=== PATIENT | male | born 1980 | race Caucasian/White ===

== ENCOUNTER 2018-03-26 10:57 | Emergency (ER) | payer BC ==
[2018-03-26 11:26] VITALS: BP 143/98
--- NOTE | 2018-03-26 12:11 | UC ---
Throat Pain/Nasal Kyle HPI - HPI Summary HPI Summary: Pt c/o sore throat, enlarged and tender lymph nodes in neck and generalized malaise X 3 days. - History of Current Complaint Chief Complaint: UCGeneralIllness Stated Complaint: ST Time Seen by Provider: 03/26/18 11:45 Hx Obtained From: Patient Onset/Duration: Sudden Onset, Lasting Days, Still Present Severity: Moderate Pain Intensity: 8 Cough: None Associated Signs & Symptoms: Positive: Dysphagia - Epiglottits Risk Factors Epiglottis Risk Factors: Negative - Allergies/Home Medications Allergies/Adverse Reactions: Allergies Allergy/AdvReac Type Severity Reaction Status Date / Time Penicillins Allergy Unknown Verified 03/26/18 11:23 Reaction Details Home Medications: Home Medications D-Methorphan/PE/Acetaminophen [Day Multi-Symp Flu-Severe Cold] 1 pow PO ONCE 11/01 [History Confirmed 03/26/18] PMH/Surg Hx/FS Hx/Imm Hx Previously Healthy: Yes - Surgical History Surgical History: Yes Surgery Procedure, Year, and Place: tonsillectomy - Family History Known Family History: Positive: Cardiac Disease - Social History Occupation: Employed Full-time Lives: With Family Alcohol Use: Rare Substance Use Type: Marijuana Substance Use Comment - Amount & Last Used: occasional Smoking Status (MU): Never Smoked Tobacco Have You Smoked in the Last Year: No Review of Systems Constitutional: Fatigue Skin: Negative Eyes: Negative ENT: Sore Throat Respiratory: Negative Cardiovascular: Negative Gastrointestinal: Negative Genitourinary: Negative Motor: Negative Neurovascular: Negative Musculoskeletal: Negative, Myalgia Neurological: Negative Psychological: Negative Is Patient Immunocompromised?: No All Other Systems Reviewed And Are Negative: Yes Physical Exam Triage Information Reviewed: Yes Appearance: Ill-Appearing Vital Signs: Initial Vital Signs Temp 99.4 F 03/26/18 11:20 Pulse 103 03/26/18 11:20 Resp 19 03/26/18 11:20 BP 143/98 03/26/18 11:20 Pulse Ox 98 03/26/18 11:20 Vital Signs Reviewed: Yes Eye Exam: Normal ENT Exam: Other ENT: Positive: Tonsillar swelling Dental Exam: Normal Neck: Positive: Tenderness @, Enlarged Nodes @ - bilateral submaxillary Respiratory Exam: Normal Cardiovascular Exam: Normal Musculoskeletal Exam: Normal Neurological Exam: Normal Psychological Exam: Normal Skin Exam: Normal Diagnostics - Laboratory Diagnostic Studies Completed/Ordered: rapid strep: positive Throat Pain/Nasal Course/Dx - Differential Dx/Diagnosis Differential Diagnosis/HQI/PQRI: Pharyngitis, Tonsillitis Provider Diagnoses: strep throat Discharge - Sign-Out/Discharge Documenting (check all that apply): Discharge/Admit/Transfer - Discharge Plan Condition: Stable Disposition: HOME Prescriptions: Azithromycin 500 mg PO DAILY #5 tablet Lidocaine 2% VISCOUS* [Xylocaine 2% Viscous*] 15 ml .SEE ORDER Q4H PRN #1 btl PRN Reason: Pain predniSONE TAB* [Deltasone TAB*] 30 mg PO DAILY #9 tab Patient Education Materials: Strep Throat (ED) Forms: *Work Release Referrals: [facility] [place] [facility]ERR[facility] [Outside] - If Needed No Primary Care Phys,NOPCP [Primary Care Provider] - - Billing Disposition and Condition Condition: STABLE Disposition: HOME
== END 2018-03-26 12:22 | disposition home or self-care (01) ==
LOC: UCCORT 10:57
DX: J02.0 Streptococcal pharyngitis (principal); Z88.0 Allergy status to penicillin
CPT/HCPCS: 87651; 99212; G0463

== ENCOUNTER 2019-03-18 08:24 | Emergency (ER) | payer BC ==
[2019-03-18 08:51] VITALS: BP 145/96
--- NOTE | 2019-03-18 09:02 | UC ---
Lower Extremity/Ankle HPI - HPI Summary HPI Summary: 38-year-old male with a history of gout presents with flareup of his gout. States developed pain and erythema to his left great toe 4-5 days ago. States he is typically treated his flareups in the past with indomethacin however he ran out of his medication 3 days ago. Denies fever, chills, injury, numbness, or tingling. - History of Current Complaint Chief Complaint: UCLowerExtremity Stated Complaint: LEFT TOE/ANKLE COMPLAINT Time Seen by Provider: 03/18/19 08:51 Hx Obtained From: Patient Pain Intensity: 7 - Allergies/Home Medications Allergies/Adverse Reactions: Allergies Allergy/AdvReac Type Severity Reaction Status Date / Time Penicillins Allergy Unknown Verified 03/26/18 11:23 Reaction Details Home Medications: Home Medications Acetaminophen [Acetaminophen Extra Strength] 1,000 mg PO Q6H PRN 03/18/19 [ History Confirmed 03/18/19] Ibuprofen TAB* [Advil TAB*] 600 mg PO Q6H PRN 03/18/19 [History Confirmed ] oxyCODONE/Acetam5/325MG PREPAK [Percocet 5/325 TAB*] 1 tab PO ONCE PRN 03/18/19 [History Confirmed 03/18/19] PMH/Surg Hx/FS Hx/Imm Hx - Additional Past Medical History Additional PMH: Gout - Surgical History Surgical History: Yes Surgery Procedure, Year, and Place: tonsillectomy. tubes in ears - Family History Known Family History: Positive: Cardiac Disease - Social History Occupation: Employed Full-time Lives: With Family Alcohol Use: Rare Substance Use Type: Marijuana Substance Use Comment - Amount & Last Used: occasional- last used last night Smoking Status (MU): Never Smoked Tobacco Have You Smoked in the Last Year: No Review of Systems All Other Systems Reviewed And Are Negative: Yes Constitutional: Negative: Fever, Chills Skin: Positive: Other Respiratory: Positive: Negative Cardiovascular: Positive: Negative Gastrointestinal: Positive: Negative Genitourinary: Positive: Negative Motor: Negative: Weakness Neurovascular: Negative: Decreased Sensation Musculoskeletal: Positive: Arthralgia - See HPI Neurological: Positive: Negative Is Patient Immunocompromised?: No Physical Exam - Summary Physical Exam Summary: GENERAL APPEARANCE: Well developed, well nourished, alert and cooperative, and appears to be in no acute distress. LUNGS: Clear to auscultation without rales, rhonchi, wheezing or diminished breath sounds. ABDOMEN: Positive bowel sounds. Soft, nondistended, nontender. No guarding or rebound. No masses or hepatosplenomegally. MUSKULOSKELETAL: Tenderness with erythema to the left first MTP. ROM diminished due to pain. No gross deformity. Circulation and sensation intact. Normal muscular development. Limping gait. SKIN: Skin normal color, texture and turgor. Triage Information Reviewed: Yes Vital Signs: Initial Vital Signs Temp 97.9 F 03/18/19 08:47 Pulse 66 03/18/19 08:47 Resp 16 03/18/19 08:47 BP 145/96 03/18/19 08:47 Pulse Ox 99 03/18/19 08:47 Vital Signs Reviewed: Yes Lower Extremity Course/Dx - Course Course Of Treatment: 38-year-old male with a history of gout presents with flareup of his gout. States developed pain and erythema to his left great toe 4-5 days ago. States he is typically treated his flareups in the past with indomethacin however he ran out of his medication 3 days ago. Denies fever, chills, injury, numbness, or tingling. Afebrile. Hypertensive otherwise vital signs stable. Exam remarkable for tenderness and erythema without gross deformity to the left first MTP. Circulation and sensation intact. Will provide him with a prescription for indomethacin 50 mg 3 times a day. He is to follow-up with his primary care provider if needed. Anticipatory guidance and warning symptoms were reviewed with the patient. Verbalizes understanding and agrees with plan of care. - Differential Dx/Diagnosis Differential Diagnosis/HQI/PQRI: Gout Provider Diagnosis: Gout attack, Elevated blood pressure reading Discharge - Sign-Out/Discharge Documenting (check all that apply): Patient Departure All imaging exams completed and their final reports reviewed: No Studies - Discharge Plan Condition: Stable Disposition: HOME Prescriptions: Indomethacin CAP* [Indocin CAP*] 50 mg PO TID PRN #30 cap PRN Reason: Pain Patient Education Materials: Low Purine Diet (ED), Gout (ED) Referrals: No Primary Care Phys,NOPCP [Primary Care Provider] - Additional Instructions: Your history and exam are consistent with a gout flare up. Take indomethacin 50 mg three times a day for pain. Continue for 2 days after symptoms subside. Eat a low purine diet to help avoid future flare ups. Follow up with your primary care provider in 3-5 days if no improvement in symptoms. Your blood pressure was elevated in the clinic today. It is recommended that you have this rechecked by your primary care provider within 4 weeks. Seek immediate medical attention if you have severe pain not managed with pain medication, have redness or swelling the spreads, develop a fever greater than 100.5 F, or have any worsening of symptoms. - Billing Disposition and Condition Condition: STABLE Disposition: Home
== END 2019-03-18 09:09 | disposition home or self-care (01) ==
LOC: UCCORT 08:24
DX: M1A.9XX0 Chronic gout, unspecified, without tophus (tophi) (principal); R03.0 Elevated blood-pressure reading, without diagnosis of hypertension; Z88.0 Allergy status to penicillin
CPT/HCPCS: 99212; G0463

== ENCOUNTER 2019-08-17 18:36 | Emergency (ER) | payer BC ==
[2019-08-17 20:22] VITALS: BP 136/96
--- NOTE | 2019-08-17 21:01 | UC ---
Lower Extremity/Ankle HPI - HPI Summary HPI Summary: 39-year-old male presents for complaints of progressively worsening left heel pain for the past 6 days. States prior to onset of pain he had been at a picnic and recalls jumping off a tractor as well as accidentally stepping in a hole in a field but states did not have pain at the time either of these occurred. He did develop some minor pain later that evening. States pain is located in the posterior aspect of the heel. Worsens with weight bearing. Has tried resting it and taken acetaminophen and ibuprofen with little improvement in symptoms. Denies bruising, erythema, edema, numbness or tingling. - History of Current Complaint Chief Complaint: UCLowerExtremity Stated Complaint: HEEL PAIN Time Seen by Provider: 08/17/19 20:36 Hx Obtained From: Patient Pain Intensity: 6 - Allergies/Home Medications Allergies/Adverse Reactions: Allergies Allergy/AdvReac Type Severity Reaction Status Date / Time Penicillins Allergy Unknown Verified 08/17/19 20:16 Reaction Details Home Medications: Home Medications Marijuana 1 udc PO BEDTIME PRN 08/17/19 [History Confirmed 08/17/19] PMH/Surg Hx/FS Hx/Imm Hx Previously Healthy: Yes - Denies significant PMH - Surgical History Surgical History: Yes Surgery Procedure, Year, and Place: tonsillectomy. tubes in ears - Family History Known Family History: Positive: Cardiac Disease - Social History Occupation: Employed Full-time Lives: With Family Alcohol Use: Rare Substance Use Type: Marijuana Substance Use Comment - Amount & Last Used: occasional- last used last night Smoking Status (MU): Never Smoked Tobacco Have You Smoked in the Last Year: No Review of Systems All Other Systems Reviewed And Are Negative: Yes Constitutional: Negative: Fever, Chills Skin: Negative: Rash, Bruising Respiratory: Positive: Negative Cardiovascular: Positive: Negative Gastrointestinal: Positive: Negative Genitourinary: Positive: Negative Motor: Negative: Weakness Neurovascular: Negative: Decreased Sensation Musculoskeletal: Positive: Other: - See HPI Neurological: Positive: Negative Is Patient Immunocompromised?: No Physical Exam - Summary Physical Exam Summary: GENERAL APPEARANCE: Alert and cooperative obese adult male who appears to be in no acute distress. CARDIAC: Normal S1 and S2. No S3, S4 or murmurs. Rhythm is regular. There is no peripheral edema, cyanosis or pallor. Extremities are warm and well perfused. Capillary refill is less than 2 seconds. Peripheral pulses intact. LUNGS: Clear to auscultation without rales, rhonchi, wheezing or diminished breath sounds. ABDOMEN: Positive bowel sounds. Soft, nondistended, nontender. No guarding or rebound. No masses or hepatosplenomegally. MUSKULOSKELETAL: ROM intact to all extremities. No joint erythema or tenderness. Normal muscular development. Normal gait. EXTREMITIES: Tenderness to the posterior left heel at the insertion site of the achilles tendon without erythema, ecchymosis, or edema. Full ROM. Pain with full dorsiflexion. Circulation and sensation intact. SKIN: Skin normal color, texture and turgor with no lesions or eruptions. Triage Information Reviewed: Yes Vital Signs: Initial Vital Signs Temp 98.1 F 08/17/19 20: Pulse 97 08/17/19 20:19 Resp 18 08/17/19 20: BP 136/96 08/17/19 20: Pulse Ox 100 08/17/19 20: Vital Signs Reviewed: Yes Diagnostics - Radiology No standard instances Radiology Interpretation Completed By: ED Physician - No acute fracture Lower Extremity Course/Dx - Course Course Of Treatment: 39-year-old male presents for complaints of progressively worsening left heel pain for the past 6 days. States prior to onset of pain he had been at a picnic and recalls jumping off a tractor as well as accidentally stepping in a hole in a field but states did not have pain at the time either of these occurred. He did develop some minor pain later that evening. States pain is located in the posterior aspect of the heel. Worsens with weight bearing. Has tried resting it and taken acetaminophen and ibuprofen with little improvement in symptoms. Denies bruising, erythema, edema, numbness or tingling. Afebrile. VSS. Patient had tenderness to the posterior left heel at the insertion site of the achilles tendon without erythema, ecchymosis, or edema. Full ROM. Pain with full dorsiflexion. Circulation and sensation intact. With the history of a possible axial load injury an x-ray was obtained and preliminary reading was negative for fracture. Results reviewed with the patient. Recommending conservative treatment for an achilles tendinitis including OTC NSAIDs and RICE. Patient was placed in a CAM boot by the RN. He is to follow up with orthopedic surgery in 5- 7 days if no improvement in symptoms. Anticipatory guidance and warning symptoms were reviewed with the patient. Verbalizes understanding and agrees with POC. - Differential Dx/Diagnosis Differential Diagnosis/HQI/PQRI: Contusion, Fracture (Closed), Sprain, Strain, Tenosynovitis Provider Diagnosis: Achilles tendinitis of left lower extremity Discharge ED - Sign-Out/Discharge Documenting (check all that apply): Patient Departure All imaging exams completed and their final reports reviewed: No - Discharge Plan Condition: Stable Disposition: HOME Patient Education Materials: Achilles Tendinitis (ED) Referrals: Caleb Perez MD [Primary Care Provider] - Lavell Callahan MD [Medical Doctor] - 5 Days Additional Instructions: The x-ray performed in the clinic today showed no evidence of a fracture. Based on your history and the location of your pain I suspect that you have an achilles tendinitis. The x-ray will be reviewed by the radiologist tomorrow and we will contact you if they see anything we'll change her plan of care. Rest the foot as much as possible. You may continue to walk and bear weight as tolerated. Use the CAM boot that was provided to you in the clinic until you are pain free. You may remove this to sleep and to shower but should wear at all other times. Apply ice to the affected area for 15-20 minutes at least 4 times a day to help with the pain and swelling. Elevate the foot to help reduce swelling. Take ibuprofen (Advil, Motrin) 600 mg every 8 hours with food for the next 5-7 days then may take every 8 hours as needed for pain. Follow up with orthopedic surgery in 5-7 days if symptoms do not improve. Seek immediate medical attention if you have severe pain not managed with pain medication, you are unable to walk or bear any weight, develop numbness or tingling in the foot or toes, or have any worsening of symptoms. - Billing Disposition and Condition Condition: STABLE Disposition: Home
--- NOTE | 2019-08-18 09:01 | UC ---
- Progress Note Progress Note: Reviewed report of calcaneus xray per Dr. Walter: NO FRACTURE seen, + heel spurs. No change in care plan. Course/Dx - Diagnoses Provider Diagnoses: Achilles tendinitis of left lower extremity Discharge ED - Sign-Out/Discharge Documenting (check all that apply): Patient Departure All imaging exams completed and their final reports reviewed: Yes - Discharge Plan Condition: Stable Disposition: HOME Patient Education Materials: Achilles Tendinitis (ED) Referrals: Lavell Callahan MD [Medical Doctor] - 5 Days Caleb Perez MD [Primary Care Provider] - Additional Instructions: The x-ray performed in the clinic today showed no evidence of a fracture. Based on your history and the location of your pain I suspect that you have an achilles tendinitis. The x-ray will be reviewed by the radiologist tomorrow and we will contact you if they see anything we'll change her plan of care. Rest the foot as much as possible. You may continue to walk and bear weight as tolerated. Use the CAM boot that was provided to you in the clinic until you are pain free. You may remove this to sleep and to shower but should wear at all other times. Apply ice to the affected area for 15-20 minutes at least 4 times a day to help with the pain and swelling. Elevate the foot to help reduce swelling. Take ibuprofen (Advil, Motrin) 600 mg every 8 hours with food for the next 5-7 days then may take every 8 hours as needed for pain. Follow up with orthopedic surgery in 5-7 days if symptoms do not improve. Seek immediate medical attention if you have severe pain not managed with pain medication, you are unable to walk or bear any weight, develop numbness or tingling in the foot or toes, or have any worsening of symptoms. - Billing Disposition and Condition Condition: STABLE Disposition: Home
== END 2019-08-17 21:51 | disposition home or self-care (01) ==
LOC: UCCORT 18:36
DX: M76.62 Achilles tendinitis, left leg (principal); Z88.0 Allergy status to penicillin
CPT/HCPCS: 99212; G0463

== ENCOUNTER 2019-10-28 13:08 | Emergency (ER) | payer BC ==
[2019-10-28 14:25] VITALS: BP 132/102
--- NOTE | 2019-10-28 14:37 | UC ---
Back Pain HPI - HPI Summary HPI Summary: 39 yo male presents with back pain. He tells me that for the past 6 months he has had mid/lower back pain. Over the last 6 weeks his pain has gotten worse. Worse with movement and bowel movement. Over the last week has had right mid back pain radiating to his RUQ abdomen that spasms and will "catch" from time to time. Complaints of a feeling increased pain when having a bowel movement. Also notes intermittent LUQ and left sided chest pain. He has been taking ibuprofen with no relief. He says smoking marijuana is the only thing that helps. He states he has a hx of kidney stones and thinks this is the problem. He denies headache, dizziness, n/v/d/c, dysuria, weakness, numbness, or recent injury. - History of Current Complaint Chief Complaint: UCGU Stated Complaint: BACK PAIN Time Seen by Provider: 10/28/19 14:36 Hx Obtained From: Patient Onset/Duration: Gradual Onset Severity Initially: Mild Severity Currently: Mild Pain Intensity: 4 - Allergies/Home Medications Allergies/Adverse Reactions: Allergies Allergy/AdvReac Type Severity Reaction Status Date / Time Penicillins Allergy Unknown Verified 10/28/19 14:19 Reaction Details PMH/Surg Hx/FS Hx/Imm Hx - Additional Past Medical History Additional PMH: Chronic pain - Surgical History Surgical History: Yes Surgery Procedure, Year, and Place: tonsillectomy. tubes in ears - Family History Known Family History: Positive: Cardiac Disease - Social History Alcohol Use: Rare Substance Use Type: Marijuana Substance Use Comment - Amount & Last Used: occasional- last used last night Smoking Status (MU): Never Smoked Tobacco Have You Smoked in the Last Year: No Review of Systems All Other Systems Reviewed And Are Negative: No Constitutional: Positive: Negative Skin: Positive: Negative Respiratory: Positive: Negative Cardiovascular: Positive: Negative Neurovascular: Positive: Negative Musculoskeletal: Positive: Other: - Back pain Neurological: Positive: Negative Psychological: Positive: Negative Physical Exam - Summary Physical Exam Summary: GENERAL: NAD. WDWN. No pain distress. SKIN: No rashes, sores, lesions, or open wounds. NECK: Supple. FROM. Nontender. No lymphadenopathy. CHEST: CTAB. No r/r/w. No accessory muscle use. Breathing comfortably and in no distress. CV: RRR. Pulses intact. Cap refill <2seconds. No JVD or carotid bruit. No abdominal pulse mass ABDOMEN: Mild RUQ and LUQ ttp. Soft. No distention or guarding. No CVA tenderness. Bowel sounds present MSK: TTP over lumbar spine and paraspinal muscles. Right mid back TTP. Pain with flexion and extension of spine. Negative SLR b/l. Strength 5/5 B/L LEs including dorsiflexion and plantar flexion. FROM B/L LEs. No edema. NEURO: Alert. Sensations intact B/L LEs L3-S1. Reflexes intact PSYCH: Age appropriate behavior. Triage Information Reviewed: Yes Vital Signs: Initial Vital Signs Temp 97.8 F 10/28/19 14:21 Pulse 67 10/28/19 14:21 Resp 16 10/28/19 14:21 BP 132/102 10/28/19 14:21 Pulse Ox 100 10/28/19 14:21 Laboratory Tests 10/28/19 14:32 POC Urine Color Yellow POC Urine Clarity Clear POC Urine pH 5.0 POC Ur Specif Riner 1.025 POC Urine Protein Negative POC Ur Glucose (UA) Negative POC Urine Ketones Negative POC Urine Blood Negative POC Urine Nitrite Negative POC Urine Bilirubin Negative POC Urine Urobilinogen 0.2 POC U Leukocyte Esteras Negative Vital Signs Reviewed: Yes Back Pain Course/Dx - Course Course Of Treatment: UA negative. Discussed with pt that his pain could likely be MSK, but given his abdominal pain and occasional left chest pain - I recommended he go to the ER for further evaluation. He declined ambulance transfer, but states he will go there now. - Differential Dx/Diagnosis Provider Diagnosis: Back pain, RUQ pain Discharge ED - Sign-Out/Discharge Documenting (check all that apply): Patient Departure All imaging exams completed and their final reports reviewed: No Studies - Discharge Plan Condition: Stable Disposition: HOME-RECOMMEND TO ED Referrals: Caleb Perez MD [Primary Care Provider] - Additional Instructions: Please go to the ER for further evaluation of your worsening back and abdominal pain - Billing Disposition and Condition Condition: STABLE Disposition: Home-Recommend to ED
== END 2019-10-28 14:50 | disposition home health service (06) ==
LOC: UCCORT 13:08
DX: M54.9 Dorsalgia, unspecified (principal); R10.11 Right upper quadrant pain; Z88.0 Allergy status to penicillin
CPT/HCPCS: 81003; 99212; G0463